=== PATIENT | male | born 1940 | race Caucasian/White ===

== ENCOUNTER → 2022-08-17 13:24 | Outpatient (BNVA) | payer MEDICARE, SELFPAY | PROVIDERS: PCP Internal Medicine; Visit Provider Psychiatry & Neurology Neurology | DX: F03.90 Unspecified dementia, unspecified severity, without behavioral disturbance, psychotic disturbance, mood disturbance, and anxiety (principal) | CPT/HCPCS: 99202 ==

== ENCOUNTER 2022-09-02 10:54 | Outpatient (REF) | payer MEDICARE, SELFPAY ==
--- NOTE | ~2022-09-02 | CT_ITS ---
EXAMINATION: CT HEAD WITHOUT CONTRAST CLINICAL INFORMATION: 82-year-old with unspecified dementia, unspecified severity, without behavioral disturbance. COMPARISON: None available. TECHNIQUE: Contiguous axial imaging was performed from the skull base to vertex without intravenous administration of contrast. This CT examination was performed using dose optimization techniques as appropriate, variously including the following: *Automated exposure control *Adjustment of mA and/or kV according to patient size (this includes techniques or standardized protocols for targeted exams where dose is matched to indication/reason for exam; i.e. extremities or head) *Use of iterative reconstruction technique DLP: 720.60 mGy-cm. FINDINGS: Brain Volume: There is moderate generalized diffuse supratentorial brain parenchymal volume loss and mild vermian volume loss. No disproportionate regional predominance is seen supratentorially within the limitations of a qualitative assessment. Structural: No malformations are identified. Brain and Meninges: Paz-white matter differentiation is maintained. There is no acute territorial infarct, hemorrhage, extra-axial fluid collection, significant space-occupying process or mass effect. There are patchy zones of hypodensity in the subcortical and deeper white matter of the right parietal and posterior frontal lobes, likely reflecting chronic ischemic microangiopathy in a patient of this age. Some patchy hypodensity also noted in the left subcortical white matter of the frontal lobe. Ganglionic structures and brainstem are grossly intact. There are mural calcifications of both carotid siphons with atheromatous the vascular calcifications of both vertebral arteries. Ventricles and Subarachnoid Spaces: There is a cavum septum pellucidum and cavum vergae, which is an anatomic variant. There is [id number] third and lateral ventriculomegaly, likely reflecting volume loss. No definite hydrocephalus. Orbital Structures: Bilateral lens extractions are noted. Otherwise, the visualized orbital soft tissues are grossly unremarkable within the limitations of the study. Osseous Structures, Sinuses/Mastoids, Extracranial Soft Tissues: The calvarium is intact. Mastoids and middle ear cavities are unopacified. There is opacification of the visualized frontal sinuses bilaterally with opacification of the anterior ethmoid complex bilaterally and a possible 1.3 cm polyp in the left nasal cavity. Correlate with direct visualization. There may be a small polyp along the posteroinferior margin of the bony nasal septum as well as on the left. The visualized extracranial soft tissue structures are grossly unremarkable in appearance within the limitations of the exam. CT/CT head/brain wo IV con IMPRESSION: 1. No acute intracranial process. No evidence for acute territorial infarct, hemorrhage, extra-axial fluid collection, space-occupying process, mass effect or hydrocephalus. 2. Chronic ischemic microangiopathy in the white matter of both cerebral hemispheres, right more than left. 3. Sdqg-bk-[id number] third and lateral ventriculomegaly, likely reflecting volume loss. 4. Paranasal sinus inflammatory changes and possible nasal polyps. Correlate with direct visualization.
== END 2022-09-02 10:55 | disposition home or self-care (01) ==
LOC: HO.CT 10:54
PROVIDERS: PCP Internal Medicine; Visit Provider Psychiatry & Neurology Neurology
DX: F03.90 Unspecified dementia, unspecified severity, without behavioral disturbance, psychotic disturbance, mood disturbance, and anxiety (principal)
CPT/HCPCS: 70450

== ENCOUNTER 2022-11-24 10:21 | Outpatient (AMB) | payer MEDICARE, SELFPAY ==
--- NOTE | 2022-11-24 10:42 | MHC.OFFVIS ---
Intake Vital Signs 11/24/22 10:48 Weight 145 lb 8 oz BP 72/48 L Pulse 74 Pulse Source Pulse Oximeter Pulse Oximetry (%) 97 Oxygen Delivery Method Room Air Intake Visit Reasons: 3m follow memory loss-Confirmed Intake Note: Follow up Memory It Operations Specialist Required: No Allergies Penicillins Allergy (Unknown, Verified 11/24/22 10:43) Unknown HPI HPI Comments History of Present Illness Details 82 y/o male patient presents with his for follow up of dementia. Pt's reports that he started memantine 14 mg 10 days ago. Hearing test had done last week and referred to ENT. Pt states that remembering and thinking has improved, and daily routine has been better. He can do all ADLs independently. He sleep well, denies behavior issue or confusion. He walks 3 miles a day, and does not drive. [facility] Medical History (Updated 08/17/22 @ 14:08 by Macie Cheung MD) Arthritis Atrial fibrillation Dementia Diabetes GERD (gastroesophageal reflux disease) HTN (hypertension) Hyperlipidemia Family History Father Diabetes Brother Lung disease Social History (Updated 11/24/22 @ 10:48 by Edith Simpson CMA) Alcohol intake: never Patient Tobacco Use Status: Never used Tobacco Review of Systems Const All systems reviewed & are unremarkable except as noted in HPI and below Neuro Reports confusion Psych Reports confusion Physical Exam Vital Signs: Last Vital Signs Pulse 74 11/24/22 10:48 BP 72/48 L 11/24/22 10:48 Pulse Ox 97 11/24/22 10:48 Oxygen Delivery Method Room Air 11/24/22 10:48 Const General: cooperative, healthy appearing, no acute distress and confusion Nutritional Appearance: average body habitus Orientation/consciousness: oriented to person and confusion Limitations: no limitations HEENT Head: Yes normal to inspection and Yes normocephalic Eyes Pupils: Equal, round and reactive pupils present Neuro General: oriented to person, tone normal, moves all extremities, no focal motor deficits and confusion Cranial nerves: Yes Facial sensation intact/muscles of mastication intact, Yes Equal, round and reactive pupils present, Yes Bilaterally intact EOM present, Yes Nystagmus not present and Yes Normal facial strength present Cognition (Neuro): abnormal cognition Gait exam (Neuro): Normal gait present Motor exam (neuro): 5/5 motor strength present throughout and Normal motor muscle tone present throughout Deep tendon reflexes (DTR's): Right triceps reflex intensity grade: 1+, Left triceps reflex intensity grade: 1+, Rt Biceps (C5, C6): 1+, Left biceps reflex intensity grade: 1+, Right brachioradialis reflex intensity grade: 1+, Left brachioradialis reflex intensity grade: 1+, Right patellar reflex intensity grade: 1+ and Left patellar reflex intensity grade: 1+ Coordination: [id number] test normal Assessment & Plan Assessment & Plan (1) Dementia: Code(s): F03.90 - Unspecified dementia, unspecified severity, without behavioral disturbance, psychotic disturbance, mood disturbance, and anxiety Plan Advised patient to increase namenda XR 7 mg qd after finish 14 mg. Advised patient to increase social and cognitive activity. Medications: New memantine 21 mg PO DAILY 60 ea 0RF 60 days Coding Level of Care Code Est Pt Level 3 (07860) Diagnoses Dementia F03.90
[2022-11-24 10:48] VITALS: BP 72/48; PULSE 74; O2SAT 97
== END 2022-11-24 11:11 | disposition home or self-care (01) ==
LOC: HO.HSMS 10:21
PROVIDERS: PCP Internal Medicine; Visit Provider Nurse Practitioner Family
DX: F03.90 Unspecified dementia, unspecified severity, without behavioral disturbance, psychotic disturbance, mood disturbance, and anxiety (principal)
CPT/HCPCS: 99213

== ENCOUNTER → 2022-11-24 10:21 | Outpatient (BNVA) | payer MEDICARE, SELFPAY | PROVIDERS: PCP Internal Medicine; Visit Provider Nurse Practitioner Family | DX: F03.90 Unspecified dementia, unspecified severity, without behavioral disturbance, psychotic disturbance, mood disturbance, and anxiety (principal) | CPT/HCPCS: 99212 ==

== ENCOUNTER 2023-03-25 10:55 | Outpatient (AMB) | payer MEDICARE, SELFPAY ==
--- NOTE | 2023-03-25 10:58 | MHC.OFFVIS ---
Intake Vital Signs 03/25/23 11:08 Weight 142 lb 8 oz BP 110/70 Blood Pressure Location Lt brachial Position Sitting Pulse 68 Pulse Source Pulse Oximeter Pulse Oximetry (%) 98 Oxygen Delivery Method Room Air Intake Visit Reasons: 4m follow memory loss - Confirmed Intake Note: Memory loss accompanied by Son and . Son has questions, would an iron supplement be helpful, second could thyroid medication contribute to fathers symptoms of memory loss, third one is there a specific diagnosis for the type of dementia his father has. Computer Drafter Required: No Allergies Penicillins Allergy (Unknown, Verified 03/25/23 10:59) Unknown HPI HPI Comments History of Present Illness Details 83 y/o male patient presents with his and son for follow up of dementia. Pt's reports that he has good days and bad days, but overall his memory and cognitive function has been stable. He is on memantine 21 mg and toleated well. Pt states that remembering and thinking has improved, and daily routine has been better. He can do all ADLs independently. He gets confused in the evening more. He sleeps well, and no behavior reported. He walks 3 miles a day, and does not drive. [facility] Medical History (Updated 08/17/22 @ 14:08 by Macie Cheung MD) Dementia Arthritis Atrial fibrillation Hyperlipidemia HTN (hypertension) GERD (gastroesophageal reflux disease) Diabetes Surgical History (Updated 03/25/23 @ 11:06 by Edith Simpson CMA) H/O hernia repair Family History Father Diabetes Brother Lung disease Social History (Updated 03/25/23 @ 11:07 by Edith Simpson CMA) Alcohol intake: never Patient Tobacco Use Status: Never used Tobacco Review of Systems Const All systems reviewed & are unremarkable except as noted in HPI and below Neuro Reports confusion Psych Reports confusion Physical Exam Vital Signs: Last Vital Signs Pulse 68 03/25/23 11:08 BP 110/70 03/25/23 11:08 Pulse Ox 98 03/25/23 11:08 Oxygen Delivery Method Room Air 03/25/23 11:08 Const General: cooperative, healthy appearing, no acute distress and confusion Nutritional Appearance: average body habitus Orientation/consciousness: oriented to person and confusion Limitations: no limitations HEENT Head: Yes normal to inspection and Yes normocephalic Eyes Pupils: Equal, round and reactive pupils present Neuro General: oriented to person, tone normal, moves all extremities, no focal motor deficits and confusion Cranial nerves: Yes Facial sensation intact/muscles of mastication intact, Yes Equal, round and reactive pupils present, Yes Bilaterally intact EOM present, Yes Nystagmus not present and Yes Normal facial strength present Cognition (Neuro): abnormal cognition Gait exam (Neuro): Normal gait present Motor exam (neuro): 5/5 motor strength present throughout and Normal motor muscle tone present throughout Deep tendon reflexes (DTR's): Right triceps reflex intensity grade: 1+, Left triceps reflex intensity grade: 1+, Rt Biceps (C5, C6): 1+, Left biceps reflex intensity grade: 1+, Right brachioradialis reflex intensity grade: 1+, Left brachioradialis reflex intensity grade: 1+, Right patellar reflex intensity grade: 1+ and Left patellar reflex intensity grade: 1+ Coordination: [id number] test normal Assessment & Plan Assessment & Plan (1) Dementia: Code(s): F03.90 - Unspecified dementia, unspecified severity, without behavioral disturbance, psychotic disturbance, mood disturbance, and anxiety Plan Advised patient to increase namenda XR 28 mg qd. Advised patient to increase social and cognitive activity. Medications: New memantine 28 mg PO DAILY 90 ea 2RF 90 days Discontinued memantine Discontinued Reason: Doctor's Order 21 mg PO DAILY 60 days 60 ea 0RF Coding Level of Care Code Est Pt Level 3 (13442) Diagnoses Dementia F03.90
[2023-03-25 11:08] VITALS: BP 110/70; PULSE 68; O2SAT 98
== END 2023-03-25 11:29 | disposition home or self-care (01) ==
PROVIDERS: PCP Internal Medicine; Visit Provider Nurse Practitioner Family
DX: F03.90 Unspecified dementia, unspecified severity, without behavioral disturbance, psychotic disturbance, mood disturbance, and anxiety (principal)
CPT/HCPCS: 99213

== ENCOUNTER → 2023-03-25 10:55 | Outpatient (BNVA) | payer MEDICARE, SELFPAY | PROVIDERS: PCP Internal Medicine; Visit Provider Nurse Practitioner Family | DX: F03.90 Unspecified dementia, unspecified severity, without behavioral disturbance, psychotic disturbance, mood disturbance, and anxiety (principal) | CPT/HCPCS: 99212 ==

== ENCOUNTER 2023-09-23 11:21 | Outpatient (AMB) | payer MEDICARE, SELFPAY ==
--- NOTE | 2023-09-23 11:20 | A.OFFVIS_ITS ---
Vital Signs 09/23/23 11:25 Height 5 ft 9 in Weight 144 lb 2 oz BMI 21.3 BP 100/64 Blood Pressure Location Lt brachial Position Sitting Pulse 69 Pulse Source Pulse Oximeter Pulse Oximetry (%) 97 Oxygen Delivery Method Room Air Intake Visit Reasons: 6 mo f/u memory loss/ Confirmed Intake Note: Patient presents for 6 month f/u. Allergies Penicillins Allergy (Unknown, Verified 09/23/23 11:24) Unknown HPI Comments Details: 83 y/o male patient presents with his and son for follow up of dementia. Pt's reports that he has good days and bad days, but overall his memory and cognitive function has been stable. He is on memantine 28mg and tolerated well. He can be more confusion in the evening, but sleeps well, no behavior problems. Pt's reports patient sleeps well at night but also takes a nap during daytime. Denies snoring, gasping arousals, or disrupted sleep. Pt states that remembering and thinking has improved, and daily routine has been better. He can do all ADLs independently. He walks 3 miles a day, and does not drive. However, does not do any social or cognitive activities. Pt is not interested in participate social activities. Néstor depression. Pt and her does not want to have neuropsychology evaluation. [facility] Medical History (Updated 08/17/22 @ 14:08 by Macie Cheung MD) Dementia Arthritis Atrial fibrillation Hyperlipidemia HTN (hypertension) GERD (gastroesophageal reflux disease) Diabetes Surgical History H/O hernia repair Family History Father Diabetes Brother Lung disease Social History Alcohol intake: never Patient Tobacco Use Status: Never used Tobacco Review of Systems Const All systems reviewed & are unremarkable except as noted in HPI and below Neuro Reports confusion Psych Reports confusion Physical Exam Vital Signs: Last Vital Signs Pulse 69 09/23/23 11:25 BP 100/64 09/23/23 11:25 Pulse Ox 97 09/23/23 11:25 Oxygen Delivery Method Room Air 09/23/23 11:25 BMI result Body Mass Index 21.3 Const General: cooperative, healthy appearing, no acute distress and confusion Nutritional Appearance: average body habitus Orientation/consciousness: oriented to person and confusion Limitations: no limitations HEENT Head: Yes normal to inspection and Yes normocephalic Eyes Pupils: Equal, round and reactive pupils present Neuro General: oriented to person, tone normal, moves all extremities, no focal motor deficits and confusion Cranial nerves: Yes Facial sensation intact/muscles of mastication intact, Yes Equal, round and reactive pupils present, Yes Bilaterally intact EOM present, Yes Nystagmus not present and Yes Normal facial strength present Cognition (Neuro): abnormal cognition Gait exam (Neuro): Normal gait present Motor exam (neuro): 5/5 motor strength present throughout and Normal motor muscle tone present throughout Deep tendon reflexes (DTR's): Right triceps reflex intensity grade: 1+, Left triceps reflex intensity grade: 1+, Rt Biceps (C5, C6): 1+, Left biceps reflex intensity grade: 1+, Right brachioradialis reflex intensity grade: 1+, Left brachioradialis reflex intensity grade: 1+, Right patellar reflex intensity grade: 1+ and Left patellar reflex intensity grade: 1+ Coordination: [id number] test normal Assessment & Plan Assessment & Plan (1) Dementia: Code(s): F03.90 - Unspecified dementia, unspecified severity, without behavioral disturbance, psychotic disturbance, mood disturbance, and anxiety Category: Medical Plan Advised patient to continue namenda XR 28 mg qd. Advised patient to increase social and cognitive activity. Coding Level of Care Code Est Pt Level 3 (95468) Diagnoses Dementia F03.90
[2023-09-23 11:25] VITALS: BP 100/64; PULSE 69; O2SAT 97; BMI 21.3
== END 2023-09-23 11:44 | disposition home or self-care (01) ==
PROVIDERS: PCP Internal Medicine; Visit Provider Nurse Practitioner Family
DX: F03.90 Unspecified dementia, unspecified severity, without behavioral disturbance, psychotic disturbance, mood disturbance, and anxiety (principal)
CPT/HCPCS: 99213

== ENCOUNTER → 2023-09-23 11:21 | Outpatient (BNVA) | payer MEDICARE, SELFPAY | PROVIDERS: PCP Internal Medicine; Visit Provider Nurse Practitioner Family | DX: F03.90 Unspecified dementia, unspecified severity, without behavioral disturbance, psychotic disturbance, mood disturbance, and anxiety (principal); Z79.899 Other long term (current) drug therapy | CPT/HCPCS: 99212 ==

== ENCOUNTER 2024-09-20 10:45 | Outpatient (AMB) | payer MEDICARE, SELFPAY ==
--- NOTE | 2024-09-20 10:46 | MHC.OFFVIS ---
Vital Signs 09/20/24 10:47 Height 5 ft 9 in Weight 144 lb BMI 21.3 BP 110/74 Blood Pressure Location Rt brachial Position Sitting Pulse 66 Pulse Source Pulse Oximeter Pulse Oximetry (%) 99 Oxygen Delivery Method Room Air Intake Visit Reasons: 1 Year F/U-Conf Intake Note: Patient presents for follow up dementia. patient on namenda Allergies Penicillins Allergy (Unknown, Verified 09/20/24 10:48) Unknown Medication List - Last Reconciled 09/20/24 by Macie Cheung MD alfuzosin ER (Uroxatral) 10 mg PO DAILY amlodipine-benazepril 5-10 mg (Lotrel) 1 cap PO DAILY insulin glargine (Lantus Solostar U-100 Insulin) 10 units subcut QPM levothyroxine 50 mcg PO DAILY memantine 28 mg PO DAILY metformin ER 500 mg PO DAILY metoprolol succinate ER mg PO omeprazole 20 mg PO DAILY simvastatin 40 mg PO BEDTIME warfarin mg PO HPI Comments Details: 84 y/o male patient presents with his and son for follow up of dementia. Pt's reports that he has good days and bad days, but overall his memory and cognitive function has declined.He needs help getting dress, help with showers etc. He is on memantine 28mg and tolerated well. He can be more confusion in the evening, but sleeps well, no behavior problems. Pt's reports patient sleeps well at night but also takes a nap during daytime. Denies snoring, gasping arousals, or disrupted sleep. However, does not do any social or cognitive activities. Pt is not interested in participate social activities. Néstor depression. Pt and her does not want to have neuropsychology evaluation. [facility] Medical History Dementia Arthritis Atrial fibrillation Hyperlipidemia HTN (hypertension) GERD (gastroesophageal reflux disease) Diabetes Surgical History H/O hernia repair Family History Father Diabetes Brother Lung disease Social History Alcohol intake: never Patient Tobacco Use Status: Never used Tobacco Physical Exam Vital Signs: Last Vital Signs Pulse 66 04/24/25 10:47 BP 110/74 09/20/24 10:47 Pulse Ox 99 09/20/24 10:47 Oxygen Delivery Method Room Air 09/20/24 10:47 BMI result Body Mass Index 21.3 Orientation Where are we (state) (county) (town or city) (hospital) (floor)?: state, town or city and hospital/clinic Registration Name of 3 unrelated objects clearly and slowly, then ask patient to repeat all 3 of them. (1st repeat determines score. Make sure they can repeat all three): object 1, object 2 and object 3 Language Show patient a wristwatch & ask what it is. Repeat for pencil.: watch and pencil Ask the patient to repeat the phrase 'No ifs, ands, or buts' after you.: correct Ask the patient to 'take a piece of paper with their right hand' 'fold paper in half' 'place paper on floor': take paper in right hand, fold paper in half and place paper on floor Print the sentence 'CLOSE YOUR EYES' on a piece. If patient actually closes eyes then score.: followed written direction Score Score: 13 Assessment & Plan Assessment & Plan (1) Dementia: Code(s): F03.90 - Unspecified dementia, unspecified severity, without behavioral disturbance, psychotic disturbance, mood disturbance, and anxiety Category: Medical Qualifiers: Dementia type: Alzheimer's Alzheimer's disease onset: late onset Dementia severity: severe Dementia behavioral or psychological symptom: without behavioral, psychotic, or mood disturbance or anxiety Qualified Code(s): G30.1 - Alzheimer's disease with late onset; F02.C0 - Dementia in other diseases classified elsewhere, severe, without behavioral disturbance, psychotic disturbance, mood disturbance, and anxiety Plan Advised patients to look for scalloper facilities. His is the main caregiver and has help 1 day a week for 4 hrs is stressed D/c memantine Advised patient to increase social and cognitive activity. Orders: [facility]errals [facility] Referral F03.90 - Unspecified dementia, unspecified severity, without behavioral disturbance, psychotic disturbance, mood disturbance, and anxiety Coding Level of Care Code Est Pt Level 4 (24410) Complex EM visit Add On G2211 Diagnoses Severe late onset Alzheimer's dementia without behavioral disturbance, psychotic disturbance, mood disturbance, or anxiety G30.1; F02.C0 Dementia type: Alzheimer's Alzheimer's disease onset: late onset Dementia severity: severe Dementia behavioral or psychological symptom: without behavioral, psychotic, or mood disturbance or anxiety
[2024-09-20 10:47] VITALS: BP 110/74; PULSE 66; O2SAT 99; BMI 21.3
--- OUTSIDE RECORDS SUMMARY | 2024-09-20 12:35 | XMS_ITS | Clinical Summary ---
Author Organization [address] [place] [address] Address [address] [place] [address] Phone Care Team Providers Care Electric Meter Tester Helper Name Role Phone Ayad Damon MD Primary Care Provider [phone] Allergies Active Allergy Reactions Criticality Noted Date Comments Penicillins 08/03/2021 Medications Jantoven 1 mg tablet TAKE 2-3 TABLETS DAILY DIRECTED BY [facility] 270 tablet 2 04/05/2024 Active memantine HCl (MEMANTINE ORAL) Take 1 capsule by mouth 1 (one) time each day. Active benazepriL (LOTENSIN) 10 mg tablet Take 1 Tablet by mouth daily for 360 days. 12/09/2023 12/04/19 25 Active warfarin (COUMADIN) 2 mg tablet Take 1 tablet daily as directed by [facility] 07/20/2023 Active warfarin (COUMADIN) 1 mg tablet Take 2-3 tablets daily as directed by [facility] 07/07/2023 Active insulin glargine,hum.re c.anlog (LANTUS U-100 INSULIN SUBQ) Inject 12 Units into the skin every morning. Active alfuzosin (UROXATRAL) 10 mg 24 hr tablet Take 1 tablet (10 mg total) by mouth 1 (one) time each day. 12/14/2012 Active metoprolol succinate (TOPROL-XL) 100 mg 24 hr tablet 1.5 tablet daily 12/14/2012 Active simvastatin (ZOCOR) 40 mg tablet 1 tablet daily. 12/14/2012 Active omeprazole (PRILOSEC) 20 mg tablet,delayed release (DR/EC) Take 1 tablet (20 mg total) by mouth 1 (one) time each day. 12/14/2012 Active metFORMIN (GLUCOPHAGE) 500 mg tablet Take 1 tablet (500 mg total) by mouth 1 (one) time each day. Active levothyroxine (SYNTHROID, LEVOTHROID) 50 mcg tablet Take 50 mcg by mouth daily. No tablet on Sat. And Sun Active multivit-min/fo lic acid/lutein (CENTRUM SILVER ORAL) Take by mouth 1 (one) time each day. Active Active Problems Problem Noted Date Diagnosed Date Atrial fibrillation (CMS/HCC V24, CMS/HCC V28) 1 06/12/2023 Orthostatic hypotension 12/09/2023 Aortic dilatation (CMS/HCC V24) 08/16/2022 Overview (05/08/2024): Last Assessment & Plan: Echocardiogram documented dilatation of the aortic root measuring 4.6 cm. Blood pressure is well controlled. I carefully reviewed echocardiograms over the years. We will tentatively plan for echocardiogram in 2 years as the progression has been gradual. Coronary artery disease involving [place] coron[place] y artery 08/03/2021 Overview (05/08/2024): Last Assessment & Plan: Remote stenting of the LAD in 1994 with mild hypokinesis of the anterior wall. He has not exhibited signs or symptoms of coronary insufficiency or congestive heart failure. He is on appropriate medical therapies for secondary prevention. Recent echocardiogram disclosed no significant change in cardiac function Dyslipidemia 08/03/2021 Overview (05/08/2024): Last Assessment & Plan: LDL is at goal of less than 70 on statin therapy. No changes recommended. Encounters Date Type Department Care Team Description 09/14/2024 Lab [facility] Cardiology [facility] [address] [place] [id number] Ayad Tyler MD Atrial fibrillation, unspecified type (CMS/HCC V24, CMS/HCC V28) 09/13/2024 Anticoagulation - Warfarin Visit [facility] Cardiology [facility] [address] [place] [address] Ayad Tyler MD Atrial fibrillation, unspecified type (CMS/HCC V24, CMS/HCC V28) (Primary Dx) 09/07/2024 Lab [facility] Cardiology [facility] [address] [place] [address] Ayad Tyler MD Atrial fibrillation, unspecified type (CMS/HCC V24, CMS/HCC V28) 08/31/2024 Lab [facility] Cardiology [facility] [address] [place] [address] Ayad Tyler MD Atrial fibrillation, unspecified type (CMS/HCC V24, CMS/HCC V28) 08/24/2024 Lab [facility] [address] [place] [address] Ayad Tyler MD Atrial fibrillation, unspecified type (CMS/HCC V24, CMS/HCC V28) 08/17/2024 Lab [facility] [address] [place] [address] Ayad Tyler MD Atrial fibrillation, unspecified type (CMS/HCC V24, CMS/HCC V28) 08/16/2024 12:30 PM EDT Ancillary Procedure [facility] [address] [place] [address] Atrial fibrillation (CMS/HCC V24, CMS/HCC V28) 08/13/2024 Anticoagulation - Warfarin Visit [facility] [address] [place] [address] Ayad Tyler MD Atrial fibrillation, unspecified type (CMS/HCC V24, CMS/HCC V28) (Primary Dx) 08/02/2024 Anticoagulation - Warfarin Visit [facility] [address] [place] [address] Ayad Tyler MD Atrial fibrillation, unspecified type (CMS/HCC V24, CMS/HCC V28) (Primary Dx) 07/04/2024 Anticoagulation - Warfarin Visit [facility] [address] [place] [address] Ayad Tyler MD Atrial fibrillation, unspecified type (CMS/HCC V24, CMS/HCC V28) (Primary Dx) from Last 3 Months Social History Tobacco Use Types Packs/Day Years Used Date Smoking Tobacco: Former Smokeless Tobacco: Never Alcohol Use Standard Drinks/Week Comments Not Currently 0 (1 standard drink = 0.6 oz pur e alcohol) Sex and Gender Information Value Date Recorded Sex Assigned at Not on file Legal Sex Male 12:58 AM EST Gender Identity Not on file Sexual Orientation Not on file Obstetrics History Last Filed Vital Signs Vital Sign Reading Time Taken Comments Blood Pressure 122/70 08/16/2024 1:18 PM EDT Pulse 62 12/09/2023 10:21 AM EDT Temperature - - Respiratory Rate - - Oxygen Saturation - - Inhaled Oxygen Concentration - - Weight 64.4 kg (142 lb) 08/16/2024 1:18 PM EDT Height 172.7 cm (5' 8 ) 08/16/2024 1:18 PM EDT Body Mass Index 21.59 08/16/2024 1:18 PM EDT Plan of Treatment Upcoming Encounters Date Type Department Care Team (Late st Contact Info) Description 09/21/2024 Lab [facility] Cardiology [facility] [address] [place] [address] Ayad Tyler MD [address] [place] [address] [address] [place] [address] Atrial fibrillation, unspecified type ([facility] V24, [facility] V28) Health Maintenance Due Date Last Done Comments Diabetes: Annual GFR (Glomerular Filtration Rate) 1940 Diabetes: Annual Foot Exam 1950 Diabetes: Annual Retina Eye Exam 1950 DTaP,Tdap,and Td Vaccines (1 - Tdap) 1959 Zoster Vaccines (1 of 2) 1990 Pneumococcal Vaccine: 50+ Years (2 of 2 - PCV) 09/20/2018 09/20/2017 Cholesterol Screening (Lipid Panel) 05/08/2022 Depression Screening 05/08/2022 Falls Risk Assessment 05/08/2022 Medicare Annual Wellness Visit 05/08/2022 Social Influencers of Health Screening 05/08/2022 Hypertension/CHF/CAD Annual BMP Blood Test 05/09/2022 Diabetes: Annual Urine Albumin-Creatinine Ratio (uACR) 08/16/2024 Diabetes: Blood Sugar Control Test (HGBA1C) 08/16/2024 COVID-19 Vaccine ( season) 2024 03/01/2024, 07/10/2022, 09/02/2021, Additional history exists RSV Immunization Adult Patients Completed 04/14/2023 Influenza Vaccine Completed 03/01/2024, , 03/03/2022, Additional history exists HIB Vaccines Aged Out No longer eligi ble based on patient's age to complete this topic HPV Vaccines Aged Out No longer eligi ble based on patient's age to complete this topic Hepatitis A Vaccines Aged Out No long er eligible based on patient's age to complete this topic Hepatitis B Vaccines Aged Out No long er eligible based on patient's age to complete this topic IPV Vaccines Aged Out No longer eligi ble based on patient's age to complete this topic MMR Vaccines Aged Out No longer eligi ble based on patient's age to complete this topic Meningococcal ACWY Vaccine Aged Out N o longer eligible based on patient's age to complete this topic Meningococcal B Vaccine Aged Out No l onger eligible based on patient's age to complete this topic RSV Immunization Patients Under 20 months Aged Out No longer eligible based on patient's age to complete this topic Varicella Vaccines Aged Out No longer eligible based on patient's age to complete this topic Procedures Procedure Name Priority Date/Time Associated Diagnosis Comments PROTHROMBIN TIME WITH INR Routine 09/13/2024 9:06 AM EDT Atrial fibrillation, unspecified type (CMS/HCC V24, CMS/HCC V28) TRANSTHORACIC ECHOCARDIOGRAM (TTE) COMPLETE Routine 08/16/2024 1:19 PM EDT Atrial fibrillation (CMS/HCC V24, CMS/HCC V28) PROTHROMBIN TIME WITH INR Routine 08/13/2024 10:06 AM EDT Atrial fibrillation, unspecified type (CMS/HCC V24, CMS/HCC V28) PROTHROMBIN TIME WITH INR Routine 08/02/2024 9:20 AM EST PROTHROMBIN TIME WITH INR Routine 07/04/2024 9:07 AM EST from Last 3 Months Results * (ABNORMAL) Prothrombin time with INR (09/13/2024 9:06 AM EDT) Only the most recent of4 resultswithin the time period is included. Pathologist [facility] Normalized Ratio (INR) 2.7(H) 0.9 - 1.1 [facility] 1 Prothrombin Time 25.6(H) 9.2 - 11.4 SEC [facility] 1 Blood Venous blood specimen / Unknown 09/13/2024 9:06 AM EDT 09/13/2024 Narrative [facility] 1 - 09/13/2024 3:44 PM EDT Performed at: ??[address] - [address] ??[id number] Group Sales Coordinator: Scout Sam MD, Phone: ??[phone] us Ayad Tyler MD LAB BLOOD ORDERABLES Final Resul t [facility] 1 * (ABNORMAL) TRANSTHORACIC ECHOCARDIOGRAM (TTE) COMPLETE (08/16/2024 1:19 PM EDT) Pathologist [facility] LV EDV (A2C) 66 mL CV PACS LV EDV (A4C) 120 mL CV PACS LV Diastolic Volume (BP) 89 62 - 150 mL CV PACS LV ESV (A2C) 40 mL CV PACS LV ESV (A4C) 68 mL CV PACS LV Systolic Volume (BP) 53 21 - 61 mL CV PACS IVSD 1.1(A) 0.6 - 1.0 cm CV PACS LVIDD 5.2 4.2 - 5.8 cm CV PACS LVIDS 4.0 2.5 - 4.0 cm CV PACS LVOT Diameter 2.3 cm CV PACS LVOT Mean Jan 0.5 m/s CV PACS LVOT Mean Grad 1 mmHg CV PACS LVOT Mean Grad 1 mmHg CV PACS LVOT Mean Grad 1 mmHg CV PACS LVOT Peak VTI 16.0 cm CV PACS LVOT Peak Jan 0.7 m/s CV PACS LVOT Peak Gradient 2 mmHg CV PACS LVPWD 1.2(A) 0.6 - 1.0 cm CV PACS Ejection Fraction (A2C) 40 % CV PACS Ejection Fraction (A4C) 43 % CV PACS Ejection Fraction (BP) 40 % CV PACS LVOT Area 4.2 cm2 CV PACS LVOT Stroke Volume 66 mL CV PACS Left Atrium Minor [place] 6.4 cm CV PACS Left Atrium Major [place] 7.0 cm CV PACS LA Area Sys (A2C) 24 cm2 CV PACS LA Area Sys (A4C) 29 cm2 CV PACS LA Volume (BP) 87 mL CV PACS RA Area 26.0 cm2 CV PACS RA 2D Volume 80 mL CV PACS AV Regurgitation PHT 850 ms CV PACS AR Max Velocity 3.5 m/s CV PACS AV Peak Jan 1.7 m/s CV PACS AV Peak Gradient 11 mmHg CV PACS AV Mean Gradient 6 mmHg CV PACS Ao VTI 37.2 cm CV PACS AV Area Continuity Equation 1.8 cm2 CV PACS AV Area Peak Velocity 1.8 cm2 CV PACS Aortic Arch 2.7 cm CV PACS Ascending Aorta 3.8 cm CV PACS Aortic Sinus Valsalva 4.6 cm CV PACS IVC Proximal 1.9 cm CV PACS PV Acceleration Time 103 ms CV PACS RV Diastolic Basal Dimension 4.2(A) 2.5 - 4.1 cm CV PACS RV S' 11 cm/s CV PACS TAPSE 18 mm CV PACS TR Peak Velocity 2.27 m/s CV PACS TR Peak Gradient 21 mmHg CV PACS LV ESV Index (A4C) 38 mL/m2 CV PACS LV EDV Index (A4C) 68 mL/m2 CV PACS LVOT Stroke Index 37 mL/m2 CV PACS Relative Wall Thickness ratio 0.46 CV PACS LVOT:AV VTI Index 0.43 CV PACS FS 23 % CV PACS LV Mass 2D 235 g CV PACS Ascending Aorta Index 2.15 cm/m2 CV PACS LVOT flow 208 mL/s CV PACS RA 2D Volume Index 45 mL/m2 CV PACS ANA Index (VTI) 1.01 cm2/m2 CV PACS ANA Index (Pk Jan) 1.02 cm2/m2 CV PACS LVIDD Index 2.94 cm/m2 CV PACS LVIDS Index 2.26 cm/m2 CV PACS AV Velocity Ratio 0.41 CV PACS LV Systolic Volume Index (BP) 30 mL/m2 CV PACS LV Diastolic Volume Index (BP) 50 mL/m2 CV PACS LA Volume Index (BP) 49 mL/m2 CV PACS LV Mass Index 2D 133 g/m2 CV PACS LV EDV Index (A2C) 37 mL/m2 CV PACS LV ESV Index (A2C) 23 mL/m2 CV PACS BSA 1.76 m2 CV PACS Right Ventricular Peak Systolic Pressure 29 mmHg CV PACS Est. RA Pressure 8 mmHg CV PACS Anatomical Region Laterality Modality Ultrasound Narrative 08/20/2024 9:45 AM EDT Left ventricle cavity size is normal. There is mild concentric hypertrophy. Systolic function is mildly decreased with an ejection fraction of 40-45%. Global hypokinesis more prominent in the basal inferoseptal and basal inferior wall segments Dilatation of the aorta at the sinus of valsalva 4.6 cm, ascending aorta 3.8 cm Compared to the prior study from 2022, the severity of MR has decreased from moderate to mild. Other findings as detailed above appear stable. Left Ventricle Left ventricle cavity size is normal. There is mild concentric hypertrophy. Systolic function is mildly decreased with an ejection fraction of 40-45%. Global hypokinesis more prominent in the basal inferoseptal and basal inferior wall segments. Unable to assess diastolic function due to afib. Right Ventricle Enlarged right ventricular size at 4.2 cm. Systolic function is normal. Left Atrium Left atrium cavity is severely dilated. Right Atrium Dilated right atrium. IVC/SVC RA pressures is estimated to be 8 mmHg (IVC diameter <21 mm and decreases <50% during inspiration). Mitral Valve The leaflets are mildly thickened. There is annular calcification. There is mild regurgitation. There is no evidence of mitral valve stenosis. Tricuspid Valve Tricuspid valve structure is normal. There is mild to moderate regurgitation. The right ventricular systolic pressure is normal. Aortic Valve The aortic valve is trileaflet. Thickened aortic valve leaflets. There is mild regurgitation. There is no evidence of aortic valve stenosis. Pulmonic Valve Pulmonic valve structure is normal. Ascending Aorta Aortic sinus 4.6 cm. Ascending aorta 3.8 cm. Transverse aorta 2.7 cm. Pericardium Pericardium appears normal. There is no pericardial effusion. Study Details Overall the study quality was adequate. us Ayad Tyler MD CV ECHO PROCEDURES Final Result from Last 3 Months Insurance [employer]UE [employer] - [place] MEDICARE ADVANTAGE Care Teams Electric Meter Tester Helper Relationship Specialty Start Date End Date Ayad Damon MD [address], [place] PCP - General 10/12/12
--- OUTSIDE RECORDS SUMMARY | 2024-09-20 12:35 | XMS_ITS | Encounter Summary ---
Author Organization [facility] Address [address] [place] [phone] Care Team Providers Care Automotive Center Manager Name Role Phone Ayad Damon MD Primary Care Provider [phone] Encounter Details Date Type Department Care Team (Late st Contact Info) Description 09/14/[address] [facility] [address] [facility] [place] [address] [place] [phone] Ayad Tyler MD [address] [place] [address] [address] [place] [address] Atrial fibrillation, unspecified type (CMS/HCC V24, CMS/HCC V28) Social History Tobacco Use Types Packs/Day Years Used Date Smoking Tobacco: Former Smokeless Tobacco: Never Alcohol Use Standard Drinks/Week Comments Not Currently 0 (1 standard drink = 0.6 oz pur e alcohol) Sex and Gender Information Value Date Recorded Sex Assigned at Not on file Legal Sex Male 12:58 AM EST Gender Identity Not on file Sexual Orientation Not on file documented as of this encounter Plan of Treatment Upcoming Encounters Date Type Department Care Team (Late st Contact Info) Description 09/21/[address] [facility] [address] [facility] [address] [place] [phone] Ayad Tyler MD [address] [place] [address] [address] [place] [address] Atrial fibrillation, unspecified type (CMS/HCC V24, CMS/HCC V28) documented as of this encounter Visit Diagnoses Diagnosis Atrial fibrillation, unspecified type (CMS/HCC V24, CMS/HCC V28) Atrial fibrillation, unspecified type (CMS/HCC V24, CMS/HCC V28) documented in this encounter Orders Lab Orders Without Results Count Last Ordered D ate First Ordered Date PROTHROMBIN TIME WITH INR 1 09/14/2024 documented in this encounter Care Teams Automotive Center Manager Relationship Specialty Start Date End Date Ayad Damon MD [address] [place] [address] PCP - General 10/12/12 documented as of this encounter
== END 2024-09-20 11:25 | disposition home or self-care (01) ==
LOC: HO.HSMS 10:45
PROVIDERS: PCP Internal Medicine; Visit Provider Psychiatry & Neurology Neurology
DX: G30.1 Alzheimer's disease with late onset (principal); F02.C0 Dementia in other diseases classified elsewhere, severe, without behavioral disturbance, psychotic disturbance, mood disturbance, and anxiety
CPT/HCPCS: 99214; G2211

== ENCOUNTER → 2024-09-20 10:45 | Outpatient (BNVA) | payer MEDICARE, SELFPAY | PROVIDERS: PCP Internal Medicine; Visit Provider Psychiatry & Neurology Neurology | DX: G30.1 Alzheimer's disease with late onset (principal); F02.C0 Dementia in other diseases classified elsewhere, severe, without behavioral disturbance, psychotic disturbance, mood disturbance, and anxiety | CPT/HCPCS: 99212 ==